=== PATIENT | female | born 1945 | race Caucasian/White ===

== ENCOUNTER 2019-04-25 11:27 | Outpatient (REF) | payer MEDICARE, BC, SELFPAY ==
[2019-04-25 13:57] LABS: Anion Gap 8.4 mmol/L (3-11); BUN 16 mg/dL (7-18); CO2 30.6 mmol/L (21.0-32.0); CREATININE 1.23 mg/dL (0.55-1.02); Calcium 9.1 mg/dL (8.5-10.1); Chloride 100 mmol/L (98-107); Estimated GFR 42.92 (mL/min/1.73m2); Glucose 88 mg/dL (70-100); Potassium 3.9 mmol/L (3.5-5.1); Sodium 139 mmol/L (136-145); TSH 8.07 uIU/mL (0.358-3.74)
== END 2019-04-25 11:47 ==
LOC: NCHCN 11:27
PROVIDERS: PCP Internal Medicine; Visit Provider Internal Medicine
DX: E03.9 Hypothyroidism, unspecified (principal); I10 Essential (primary) hypertension; E87.6 Hypokalemia
CPT/HCPCS: 80048; 84443

== ENCOUNTER 2019-06-28 10:21 | Outpatient (REF) | payer MEDICARE, BC, SELFPAY ==
[2019-06-28 12:06] LABS: TSH 1.01 uIU/mL (0.36-3.74)
== END 2019-06-28 10:41 ==
LOC: NCHCN 10:21
PROVIDERS: PCP Internal Medicine; Visit Provider Internal Medicine
DX: E03.9 Hypothyroidism, unspecified (principal)
CPT/HCPCS: 84443

== ENCOUNTER 2020-08-27 12:56 | Outpatient (REF) | payer MEDICARE, BC, SELFPAY ==
[2020-08-27 21:59] LABS: Anion Gap 10.5 mmol/L (3-11); BUN 16 mg/dL (7-18); CO2 29.5 mmol/L (21.0-32.0); CREATININE 1.03 mg/dL (0.55-1.02); Calcium 9.4 mg/dL (8.5-10.1); Chloride 99 mmol/L (98-107); Estimated GFR 52.53 (mL/min/1.73m2); FREE T4 1.33 ng/dL (0.76-1.46); Glucose 82 mg/dL (74-106); Potassium 3.5 mmol/L (3.5-5.1); Sodium 139 mmol/L (136-145); TSH 1.25 uIU/mL (0.36-3.74)
[2020-08-27 22:16] LABS: Calculated LDL 138 mg/dL (<100); Cholesterol 228 mg/dL (<200); HDL Cholesterol 68 mg/dL (40-60); Triglyceride 110 mg/dL (<150)
== END 2020-08-27 13:16 ==
LOC: NCHCN 12:56
PROVIDERS: PCP Internal Medicine; Visit Provider Internal Medicine
DX: E03.9 Hypothyroidism, unspecified (principal); E78.5 Hyperlipidemia, unspecified; I10 Essential (primary) hypertension
CPT/HCPCS: 80048; 80061; 84439; 84443

== ENCOUNTER 2021-08-30 15:10 | Outpatient (REF) | payer MEDICARE, BC, SELFPAY ==
[2021-08-30 20:53] LABS: HGB 13.9 g/dL (11.2-15.7); MCH 28.3 pg (27.0-33.0); MCHC 31.6 % (32.0-36.0); MCV 89.4 fL (80-95); MPV 9.8 fL (8.0-11.0); Platelet Count 259 10^3/uL (130-400); RBC 4.92 10^6/uL (3.93-5.22); RDW 13.5 % (11.7-14.6); RDW-SD 44.4 fL; WBC 11.31 10^3/uL (4.4-10.8)
[2021-08-30 21:11] LABS: ALT 21 U/L (14-59); AST 15 U/L (15-37); Albumin 4.1 g/dL (3.4-5.0); Alkaline Phosphatase 92 U/L (46-116); Anion Gap 7.1 mmol/L (3-11); BUN 21 mg/dL (7-18); Bilirubin, Total 0.9 mg/dL (0.2-1.0); CO2 32.9 mmol/L (21.0-32.0); Calcium 9.3 mg/dL (8.5-10.1); Chloride 101 mmol/L (98-107); Glucose 88 mg/dL (74-106); Potassium 3.5 mmol/L (3.5-5.1); Sodium 141 mmol/L (136-145); TSH 0.89 uIU/mL (0.36-3.74); Total Protein 7.6 g/dL (6.4-8.2)
== END 2021-08-30 15:11 | disposition home or self-care (01) ==
LOC: NCHCN 15:10
PROVIDERS: PCP Internal Medicine; Visit Provider Family Medicine
DX: I10 Essential (primary) hypertension (principal); E03.9 Hypothyroidism, unspecified; M79.605 Pain in left leg
CPT/HCPCS: 80053; 85027; 84443

== ENCOUNTER 2021-09-02 00:48 | Outpatient (CLI) | payer MEDICARE, BC, SELFPAY ==
--- NOTE | 2021-09-02 13:20 | DI.RAD_ITS ---
Exam(s) XR KNEE LT 3V AP,LAT,STEVIE EXAM: XR KNEE LT 3V AP,LAT,STEVIE CLINICAL HISTORY: LT KNEE AND LEG PAIN,M79.605 TECHNIQUE: COMPARISON: CR RIGHT KNEE 3 VIEWS from 09/30/2012 FINDINGS: Three views were obtained and show total knee joint replacement in position. The components appear w ell seated. No other significant bony abnormality seen. IMPRESSION: RADIATION DOSE DELIVERED: Total DLP
--- NOTE | 2021-09-02 13:20 | DI.RAD_ITS ---
Exam(s) XR HIP LT COMPLETE AP PELVIS EXAM: XR HIP LT COMPLETE AP PELVIS CLINICAL HISTORY: LT LEG PAIN, M79.605 TECHNIQUE: COMPARISON: No exams were available for comparison FINDINGS: Two views of the left hip and pelvis were obtained. There are mild degenerative changes of the SI david ints bilaterally. Cartilaginous joint spaces of both hips appear slightly narrowed. There minimal h ypertrophic changes of the acetabula bilaterally. No other bony or soft tissue abnormality seen. IMPRESSION: Slight DJD both hips. No evidence of acute process. RADIATION DOSE DELIVERED: Total DLP
== END 2021-09-02 01:08 ==
PROVIDERS: PCP Internal Medicine; Visit Provider Family Medicine
DX: M79.605 Pain in left leg (principal); M16.0 Bilateral primary osteoarthritis of hip
CPT/HCPCS: 73562; 73502

== ENCOUNTER → 2021-11-28 02:46 | Outpatient (CLI) | payer MEDICARE, BC, SELFPAY ==
--- NOTE | 2021-11-28 | DI.US_ITS ---
Exam(s) US PELVIS TRANSVAGINAL EXAM: US PELVIS TRANSVAGINAL CLINICAL HISTORY: POSTMENOPAUSAL BLEEDING,N95.0. TECHNIQUE: Transabdominal and transvaginal pelvic ultrasound was performed using standard protocol. COMPARISON: No exams were available for comparison FINDINGS: KIDNEYS: The left kidney is unremarkable. The right kidney was not visualized. The reports history of right renal atrophy. No evidence of renal calculi. No evidence of hydronephrosis. No renal mass o r cyst identified. UTERUS: Position: Anteverted. Size: 9.7 long by 4.9 AP by 4.0 transverse cm Endometrium: 2.1 cm. The medial stripe is thickened and heterogeneous. No increased blood flow is se en. Myometrium: Unremarkable. Cervix: Cervical nabothian cysts are present. OVARIES: The ovaries were not visualized transabdominally or transvaginally. No adnexal mass is seen sonographically. CUL-DE-SAC: Free fluid: None. Other: None. IMPRESSION: 1. Thickened heterogeneous endometrial stripe at 2.1 cm in this postmenopausal patient. Endometrial hypertrophy, polyp or neoplasm should be considered. Endometrial biopsy should be considered in this patient. Gynecologic consult is recommended. 2. The ovaries were not visualized. No adnexal masses are seen sonographically. 3. Nonvisualization of the right kidney. The patient reports a history of right renal atrophy. DATA REPOSITORY:
== END ==
PROVIDERS: PCP Internal Medicine; Visit Provider Family Medicine
DX: N95.0 Postmenopausal bleeding (principal); R93.89 Abnormal findings on diagnostic imaging of other specified body structures
CPT/HCPCS: 76830; 76856

== ENCOUNTER 2021-12-16 03:12 | Outpatient (CLI) | payer MEDICARE, BC, SELFPAY ==
[2021-12-16 12:17] LABS: Source Nasal/Nares
[2021-12-17 09:14] LABS: COVID-19 PCR Negative (Negative)
== END 2021-12-16 03:13 | disposition home or self-care (01) ==
LOC: LBO 03:12
PROVIDERS: PCP Family Medicine; Visit Provider Obstetrics & Gynecology
DX: Z01.818 Encounter for other preprocedural examination (principal); Z20.822 Contact with and (suspected) exposure to COVID-19
CPT/HCPCS: 36415; 86850; 86900; 86901; 87635; 85025

== ENCOUNTER 2021-12-16 03:46 | Outpatient (CLI) | payer MEDICARE, BC, SELFPAY ==
[2021-12-16 11:06] LABS: Abs Immature Grans 0.07 10^3/uL (0.0-0.06); Absolute Basophil Count 0.08 10^3/uL (0.0-0.2); Absolute Eosinophil Count 0.25 10^3/uL (0.0-0.7); Absolute Lymphocyte Count 2.68 10^3/uL (1.2-3.4); Absolute Monocyte Count 1.15 10^3/uL (0.1-0.8); Absolute Neutrophil Count 7.58 10^3/uL (1.2-6.7); Basophils % 0.7; Eosinophils % 2.1; HCT 42.3 % (36.0-46.0); HGB 13.7 g/dL (11.2-15.7); Immature Grans % 0.6; Lymphocytes % 22.7; MCH 28.4 pg (27.0-33.0); MCHC 32.4 % (32.0-36.0); MCV 87.8 fL (80-95); MPV 9.3 fL (8.0-11.0); Monocytes % 9.7; Neutrophils % 64.2; Nucleated RBC 0 %; Platelet Count 274 10^3/uL (130-400); RBC 4.82 10^6/uL (3.93-5.22); RDW 13.3 % (11.7-14.6); RDW-SD 43.1 fL; WBC 11.81 10^3/uL (4.4-10.8)
== END 2021-12-16 03:47 | disposition home or self-care (01) ==
LOC: LBO 03:47
PROVIDERS: PCP Family Medicine; Visit Provider Obstetrics & Gynecology
DX: N95.0 Postmenopausal bleeding (principal); Z01.818 Encounter for other preprocedural examination; Z01.812 Encounter for preprocedural laboratory examination
CPT/HCPCS: 36415; 86850; 86900; 86901; 85025

== ENCOUNTER 2021-12-18 07:19 | Day surgery (SDC) | payer MEDICARE, BC, SELFPAY ==
--- NOTE | 2021-12-17 09:29 | ENDO_PTH ---
PATIENT: Jessica Chamorro LOC: [facility] U#:[id number] AGE/SX: 76/F ROOM: RE12/18/[address]: Catalina Mak DO : 1945 BED: DIS: 12/18/2021 SPEC #: [id number] RECD: 12/18/21 12:30 STATUS: NORMA RE #: [id number] RUSTAM: 12/17/21 09:[address]: Catalina Mak DEPT: Surgical Specimen RECD BY: Yessi James ENTERED: 12/18/21 12:31 SP TYPE: Endo OTHR DR: Darci Duarte Tissues: 1 - ENDOCERVICAL BX/CURRETTE 2 - ENDOMETRIUM BX/CURRETTE 3 - ENDOMETRIUM BX/CURRETTE Procedures: GROSS AND MICRO LEVEL 4 Comments: [id number]
[2021-12-18 07:30] VITALS: BP 154/79; PULSE 79; RESP 18; TEMP 37.2; O2SAT 99
--- NOTE | 2021-12-18 08:11 | W.ANESPRE ---
General Info Date of Service Date Performed: 12/18/21 Height: 4 ft 11.8 in Weight: 110.6 kg Body Mass Index (BMI): 47.9 Surgical Procedure: Operation Date: 12/18/21 08:55 Proposed Procedures Side Surgeon p Dilation & Curettage with Hysteroscopy, MYOSURE Catalina Mak DO Meds Allergies and Home Medications Allergies Allergy/AdvReac Type Severity Reaction Status Date / Time clindamycin Allergy Intermediate Skin Rash Unverified 12/18/21 07:43 Penicillins Allergy Intermediate Skin Rash Unverified 12/18/21 07:43 Sulfa (Sulfonamide Allergy Intermediate Skin Rash Unverified 12/18/21 07:43 Antibiotics) triamterene Allergy Intermediate Skin Rash Unverified 12/18/21 07:43 povidone-iodine AdvReac Mild rash Verified 12/18/21 07:43 Home Medication Medication Instructions Recorded amlodipine [Norvasc] 10 mg PO DAILY tab-cap NS 03/13/15 aspirin [Aspirin Low-Strength] 81 mg PO DAILY tab-cap NS 03/13/15 cholecalciferol (vitamin D3) 400 unit PO DAILY NS 03/13/15 [Vitamin D3] potassium chloride 20 meq PO DAILY tab-cap NS 03/13/15 hydrochlorothiazide 25 mg tablet 25 mg PO DAILY 12/02/21 levothyroxine 125 mcg capsule 125 mcg PO DAILY 12/02/21 metoprolol succinate 25 mg PO DAILY 12/16/21 Current Visit Medications: Current Medications Generic Name Dose Route Start Last Admin Trade Name Freq PRN Reason Stop Dose Admin Ringer's Solution 1,000 mls @ 125 mls/hr 12/18/21 06:00 IV 12/23/21 23:59 INFUSION JOYCE IV Miscellaneous Supplies 1 each 12/18/21 06:00 Iv Access IV 12/23/21 23:59 DIRECTED JOYCE Sodium Chloride 0 ml 12/18/21 06:00 Normal Saline Flush 10 Ml Syr IV 12/23/21 23:59 PRN PRN Sodium Chloride 0 ml 12/18/21 06:00 Normal Saline 10 Ml Vial IJ 12/23/21 23:59 DIRECTED PRN Sterile Water 0 ml 12/18/21 06:00 Water,Injection,Sterile 10 Ml Vial IJ 12/23/21 23:59 DIRECTED PRN PFSH Active Problems Active Problems: Problem Status Onset Code Postmenopausal bleeding N95.0 Thickened endometrium R93.89 Medical History Medical History (Updated 12/18/21 @ 07:39 by Esther Avery RN) atypical trygeminal neuralgia Heart murmur benign Hx of thyroid cancer Hyperlipidemia Hypertension Hypothyroid one functioning kidney congenital Osteopenia Sleep apnea Surgical History Surgical History bladder sling Colonoscopy - MAC Hx of breast biopsy x2 Ligation of fallopian tube Open Carpal Tunnel release left Replacement of total knee joint bilateral thumb surgery Thyroid Tobacco Smoking/Tobacco Use Status: Never Alcohol Alcohol Intake: never Substance Use Substance use: Never Substance use type: does not use Vital Signs and Lab Results Vital Signs Most Recent Vital Signs in EMR: Most Recent Vital Signs Temp Pulse Resp BP Pulse Ox 37.2 C 79 18 154/79 H 99 12/18/21 07:30 12/18/21 07:30 12/18/21 07:30 12/18/21 07:30 12/18/21 07:30 Lab Results Blood Type / Crossmatch: Patient ABO/Rh O Positive 12/16/21 Antibody Screen NEGATIVE 12/16/21 Complete Blood Count: White Blood Count 11.81 10^3/uL (4.4-10.8) H 12/16/21 10:30 12/16/21 Red Blood Count 4.82 10^6/uL (3.93-5.22) 12/16/21 10:30 12/16/21 Hemoglobin 13.7 g/dL (11.2-15.7) 12/16/21 10:30 12/16/21 Hematocrit 42.3 % (36.0-46.0) 12/16/21 10:30 12/16/21 Platelet Count 274 10^3/uL (130-400) 12/16/21 10:30 12/16/21 Complete Metabolic Panel: No Data to Display Liver Function Panel: No Data to Display Coagulation Panel: No Data to Display Cardiac Panel: No Data to Display Arterial Blood Gas: No Data to Display Venous Blood Gas: No Data to Display Pancreas Panel: No Data to Display Thyroid Panel: No Data to Display Infectious Disease: Coronavirus (COVID-19)(PCR) Negative (Negative) 12/16/21 10:36 12/16/21 Coronavirus 2019 Source Nasal/Nares 12/16/21 10:36 12/16/21 Blood Cultures: No Data to Display Toxicology Panel: No Data to Display Anesthesia Assessment and Plan Anesthesia History Personal History: PONV Family History: No Family History of Anesthesia Complications Exercise Tolerance Exercise Tolerance: Metabolic Equivalents>4 Pertinent Negatives Pertinent Negatives: No Symptoms of GERD (Reports as long as she avoids certain foods she does okay. ) Cardiac & Pulmonary Exam Cardiac Exam: Normal S1/S2 Heart Sounds Pulmonary Exam: Clear Bilateral Breath Sounds Implantable Cardiac Device Does patient have a Pacemaker or an ICD?: No Airway Exam Known Difficult Airway: No Mallampati Class: 3 Mouth Opening: Narrow (< 3cm) Thyromental Distance: Greater than 3 cm Neck Range of Motion: Full ROM Neck Circumference: Normal Teeth Condition: Normal Dentition (Missing one tooth) Tooth Numberin. Missing ASA Classification ASA Score: ASA 3 Emergency Case?: No NPO Status NPO Status: NPO Clears >2 hours, Solids >8 hours Anesthesia Plan Resuscitation Status: Full Code Anesthesia Technique: General Anesthesia Airway Planned: Natural Airway Monitors Used: Standard Monitors Preoperative Comments:: Challenging IV
[2021-12-18 08:40] VITALS: BMI 47.9
[2021-12-18] MEDS: Lactated Ringers 1,000 ML 125 ML IV (08:49)
[2021-12-18 09:50] VITALS: BP 136/105; PULSE 72; RESP 16; TEMP 36.5; O2SAT 94
--- NOTE | 2021-12-18 09:51 | W.PM.OP ---
Date of service: 12/18/21 Time of Service: 09:51 Operative Note Operative Note DATE OF PROCEDURE: 12/18/21 PRE-OP DIAGNOSIS: Postmenopausal bleeding, second endometrium POST-OP DIAGNOSIS: same (Endometrial polyp) PROCEDURE: Hysteroscopy with dilation and curettage, removal of endometrial polyp SURGEON: Catalina Mak ANESTHESIA TYPE: General:No Airway Refer to Anesthesia Record ESTIMATED BLOOD LOSS: 10 PATHOLOGY: other (1. Endocervical curetting 2. Endometrial polyp 3. Endometrial curetting) COMPLICATIONS: None Patient was transported to: same day Patient's condition: stable Indications: Postmenopausal bleeding with thickened endometrium Findings: Smooth regular endometrial lining with endometrial polyp Procedure Description: Patient was taken the operating suite with an IV running where she was placed in the supine position and anesthesia administered. She was prepped and draped in the usual sterile fashion after being placed in modified dorsolithotomy position in yellowfin stirrups. Pneumatic compression stockings were placed for thromboembolism prevention. Exam under anesthesia revealed a uterus that was midline and mobile. Speculum was inserted and a single-tooth tenaculum used to grasp the anterior lip of the cervix. Cervical os dilated to the point that a 5 mm hysteroscope could be passed without difficulty. With the MyoSure and a fluid collection system the entire endometrial cavity was inspected after instillation of normal saline. The endometrial surface itself was smooth and regular, however there was a moderately sized endometrial polyp. At this point, the MyoSure device was removed and gentle endocervical curettage performed. A stone polyp forcep was inserted through the cervical os and the endometrial polyp grasped, and removed. At this point a gentle sharp endometrial curettage was performed for scant tissue. Single-tooth tenaculum was removed speculum was removed. Patient was returned to the dorsal supine position in stable condition. She woke from anesthesia without difficulty. She was taken to the same-day surgical area in stable condition. Complications: None apparent EBL: 10 mL Pathology: 1. Endocervical curettage 2. Endometrial polyp 3. Endometrial curettage Fluid: Crystalloid per anesthesia.
[2021-12-18 10:20] VITALS: BP 130/96; PULSE 52; RESP 16; TEMP 36.1; O2SAT 96
[2021-12-18] MEDS: fentaNYL 100 MCG/2 ML VIAL IVP (10:50)
[2021-12-18 11:15] VITALS: BP 132/64; PULSE 54; RESP 16; TEMP 37; O2SAT 97
--- NOTE | 2021-12-18 11:19 | W.ANESPOSTOP ---
Postoperative Evaluation Date, Time and Location Date Performed: 12/18/21 Time Performed: 11:19 Patient Location: Day Surgery Unit Vital Signs Most Recent Imported Vital Signs: Most Recent Vital Signs Temp Pulse Resp BP Pulse Ox 36.1 C L 52 L 16 130/96 H 96 12/18/21 10:20 12/18/21 10:20 12/18/21 10:20 12/18/21 10:20 12/18/21 10:20 Pain Score Most Recent Pain Score: Most Recent Pain Score Pain Level [Mid] 1 12/18/21 11:03 Pain Level 6 12/18/21 10:20 Assessment Mental Status: Awake (Alert & Oriented to Patient Baseline) Airway and Respiratory Function: Patent airway with normal (patient baseline) respiratory exam Cardiovascular Function: Hemodynamically Stable Hydration Status: Adequately Hydrated Nausea & Vomiting: No Nausea or Vomiting Pain: Pt. Denies Any Pain Peripheral Nerve Block: Patient did not receive a nerve block
== END 2021-12-18 11:40 | disposition home or self-care (01) ==
PROVIDERS: PCP Family Medicine; Visit Provider Obstetrics & Gynecology
PROC: 0UDB8ZZ Extraction of Endometrium, Via Natural or Artificial Opening Endoscopic (ICD-10-PCS; CPT 58558; principal; 2021-12-18 08:45)
DX: N95.0 Postmenopausal bleeding (principal); N84.0 Polyp of corpus uteri; R93.89 Abnormal findings on diagnostic imaging of other specified body structures; E03.9 Hypothyroidism, unspecified; E78.5 Hyperlipidemia, unspecified
CPT/HCPCS: 58558; 88305; J1885; J2001; J2405; J3010

== ENCOUNTER 2022-03-03 11:59 | Outpatient (REF) | payer MEDICARE, BC, SELFPAY ==
[2022-03-03 19:25] LABS: Anion Gap 9.2 mmol/L (3-11); BUN 19 mg/dL (7-18); CO2 29.8 mmol/L (21.0-32.0); Calcium 9.2 mg/dL (8.5-10.1); Chloride 100 mmol/L (98-107); Estimated GFR 54.05 (mL/min/1.73m2); Glucose 89 mg/dL (74-106); Potassium 3.4 mmol/L (3.5-5.1); Sodium 139 mmol/L (136-145)
== END 2022-03-03 12:00 | disposition home or self-care (01) ==
LOC: NCHCN 11:59
PROVIDERS: PCP Family Medicine; Visit Provider Family Medicine
DX: I10 Essential (primary) hypertension (principal)
CPT/HCPCS: 80048

== ENCOUNTER 2023-03-04 13:03 | Outpatient (REF) | payer MEDICARE, BC, SELFPAY ==
[2023-03-04 13:50] LABS: HCT 44.5 % (36.0-46.0); HGB 14.7 g/dL (11.2-15.7); MCH 28.1 pg (27.0-33.0); MCV 85 fL (80-95); MPV 9.7 fL (8.0-11.0); Platelet Count 274 10^3/uL (130-400); RBC 5.24 10^6/uL (3.93-5.22); RDW 13.4 % (11.7-14.6); RDW-SD 41.6 fL; WBC 10.06 10^3/uL (4.4-10.8)
[2023-03-04 14:33] LABS: ALT 23 U/L (14-59); AST 14 U/L (15-37); Alkaline Phosphatase 74 U/L (46-116); Anion Gap 8.1 mmol/L (3-11); BUN 21 mg/dL (7-18); Bilirubin, Total 1.2 mg/dL (0.2-1.0); CO2 31.9 mmol/L (21.0-32.0); CREATININE 1.1 mg/dL (0.55-1.02); Calcium 9.7 mg/dL (8.5-10.1); Calculated LDL 150 mg/dL (<100); Chloride 102 mmol/L (98-107); Cholesterol 233 mg/dL (<200); Estimated GFR 52.08 (mL/min/1.73m2); Glucose 103 mg/dL (74-106); HDL Cholesterol 67 mg/dL (40-60); Potassium 4.2 mmol/L (3.5-5.1); Sodium 142 mmol/L (136-145); TSH 0.15 uIU/mL (0.36-3.74); Total Protein 7.6 g/dL (6.4-8.2); Triglyceride 84 mg/dL (<150)
== END 2023-03-04 13:04 | disposition home or self-care (01) ==
LOC: NCHCN 13:03
PROVIDERS: PCP Family Medicine; Visit Provider Family Medicine
DX: I10 Essential (primary) hypertension (principal); N18.30 Chronic kidney disease, stage 3 unspecified; E03.9 Hypothyroidism, unspecified; E78.5 Hyperlipidemia, unspecified
CPT/HCPCS: 80053; 80061; 85027; 84443

== ENCOUNTER → 2023-10-07 01:40 | Outpatient (CLI) | payer MEDICARE, BC, SELFPAY ==
--- NOTE | 2023-10-07 07:45 | DI.US_ITS ---
Exam(s) US PELVIS TRANSVAGINAL EXAM: US PELVIS TRANSVAGINAL CLINICAL HISTORY: check stripe,postmenopausal bleeding,n95.0 TECHNIQUE: Transabdominal and transvaginal imaging was performed using standard protocol. COMPARISON: US US PELVIS TRANSVAGINAL from 11/28/2021 FINDINGS: UTERUS: Anteverted. 8.9 x 3.9 x 5.2 cm Endometrium: 20 mm. Heterogeneous. Myometrium: Unremarkable. Cervix: Unremarkable. OVARIES: Not visualized. CUL-DE-SAC: Free fluid: None. IMPRESSION: Abnormally thickened heterogeneous endometrium. Biopsy should be considered. The ovaries were not able to be visualized. DATA REPOSITORY:
== END ==
PROVIDERS: PCP Family Medicine; Visit Provider Obstetrics & Gynecology
DX: N95.0 Postmenopausal bleeding (principal)
CPT/HCPCS: 76830; 76856

== ENCOUNTER 2023-10-26 03:59 | Outpatient (CLI) | payer MEDICARE, BC, SELFPAY ==
[2023-10-26 15:30] LABS: Abs Immature Grans 0.06 10^3/uL (0.0-0.06); Absolute Basophil Count 0.09 10^3/uL (0.0-0.2); Absolute Lymphocyte Count 3.45 10^3/uL (1.2-3.4); Absolute Neutrophil Count 7.56 10^3/uL (1.2-6.7); Basophils % 0.7; Eosinophils % 2.4; HCT 44.5 % (36.0-46.0); HGB 14.8 g/dL (11.2-15.7); Immature Grans % 0.5; Lymphocytes % 27.7; MCH 28.8 pg (27.0-33.0); MCHC 33.3 % (32.0-36.0); MCV 87 fL (80-95); MPV 9.1 fL (8.0-11.0); Neutrophils % 60.7; Platelet Count 265 10^3/uL (130-400); RBC 5.14 10^6/uL (3.93-5.22); RDW 13.3 % (11.7-14.6); RDW-SD 42.8 fL; WBC 12.46 10^3/uL (4.4-10.8)
== END 2023-10-26 04:00 | disposition home or self-care (01) ==
LOC: LBO 03:59
PROVIDERS: PCP Family Medicine; Visit Provider Obstetrics & Gynecology
DX: Z01.818 Encounter for other preprocedural examination (principal)
CPT/HCPCS: 36415; 86850; 86900; 86901; 85025

== ENCOUNTER 2023-10-28 07:01 | Day surgery (SDC) | payer MEDICARE, BC, SELFPAY ==
[2023-10-28] VITALS (11 sets, daily range): BP systolic 77–162; BP diastolic 32–131; PULSE 45–87; RESP 16–24; TEMP 36.2–36.7; O2SAT 94–100; BMI 47.9
[2023-10-28] MEDS: Lactated Ringers 1,000 ML 125 ML IV (07:46)
--- NOTE | 2023-10-28 08:30 | W.ANESPRE ---
General Info Date of Service Date Performed: 10/28/23 Height: 4 ft 11 in Weight: 107.6 kg Body Mass Index (BMI): 47.9 Surgical Procedure: Operation Date: 10/28/23 08:40 Proposed Procedure Side Surgeon p Dilation & Curettage with Hysteroscopy w/Myosure Catalina Mak DO Meds Allergies and Home Medications Allergies Allergy/AdvReac Type Severity Reaction Status Date / Time clindamycin Allergy Intermediate Skin Rash Unverified 10/28/23 07:42 Penicillins Allergy Intermediate Skin Rash Unverified 10/28/23 07:42 Sulfa (Sulfonamide Allergy Intermediate Skin Rash Unverified 10/28/23 07:42 Antibiotics) triamterene Allergy Intermediate Skin Rash Unverified 10/28/23 07:42 povidone-iodine AdvReac Mild rash Verified 10/28/23 07:42 Home Medication Medication Instructions Recorded Norvasc 10 mg tablet (amlodipine) 10 mg PO DAILY 03/13/15 Vitamin D3 10 mcg (400 unit) 400 unit PO DAILY 03/13/15 tablet (cholecalciferol (vitamin D3)) potassium chloride 20 mEq 20 meq PO DAILY 03/13/15 tablet,extended release(part/cryst) hydrochlorothiazide 25 mg tablet 25 mg PO DAILY 12/02/21 levothyroxine 125 mcg capsule 125 mcg PO DAILY 12/02/21 metoprolol succinate 25 mg 25 mg PO DAILY 12/16/21 tablet,extended release 24 hr Current Visit Medications: Current Medications Generic Name Dose Route Start Last Admin Trade Name Freq PRN Reason Stop Dose Admin Ringer's Solution 1,000 mls @ 125 mls/hr 10/28/23 06:00 10/28/23 07:46 IV 11/26/23 23:59 125 mls/hr INFUSION JOYCE Administration IV Miscellaneous Supplies 1 each 10/28/23 06:00 Iv Access IV 11/26/23 23:59 DIRECTED JOYCE Sodium Chloride 0 ml 10/28/23 06:00 Normal Saline Flush 10 Ml Syr IV 11/26/23 23:59 PRN PRN Sodium Chloride 0 ml 10/28/23 06:00 Normal Saline 10 Ml Vial IJ 11/26/23 23:59 DIRECTED PRN Sterile Water 0 ml 10/28/23 06:00 Water,Injection,Sterile 10 Ml Vial IJ 11/26/23 23:59 DIRECTED PRN PFSH Active Problems Active Problems: Problem Status Onset Code Postoperative state Z98.890 Thickened endometrium R93.89 Postmenopausal bleeding N95.0 Medical History Medical History Hypertension 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 states she does NOT want gingerale and crackers post op, makes her vomit Surgical History Surgical History Hx of breast biopsy x2 thumb surgery bladder sling Ligation of fallopian tube Replacement of total knee joint bilateral Thyroid Open Carpal Tunnel release left Colonoscopy - MAC Tobacco Smoking/Tobacco Use Status: Never Alcohol Alcohol Intake: never Substance Use Substance use: Never Substance use type: does not use Vital Signs and Lab Results Vital Signs Most Recent Vital Signs in EMR: Most Recent Vital Signs Temp Pulse Resp BP Pulse Ox 36.6 C 87 20 162/73 H 97 10/28/23 07:36 10/28/23 07:36 10/28/23 07:36 10/28/23 07:36 10/28/23 07:36 Lab Results Blood Type / Crossmatch: Patient ABO/Rh O Positive 10/26/23 Antibody Screen NEGATIVE 10/26/23 Complete Blood Count: White Blood Count 12.46 10^3/uL (4.4-10.8) H 10/26/23 15:21 Red Blood Count 5.14 10^6/uL (3.93-5.22) 10/26/23 15:21 Hemoglobin 14.8 g/dL (11.2-15.7) 10/26/23 15:21 Hematocrit 44.5 % (36.0-46.0) 10/26/23 15:21 Platelet Count 265 10^3/uL (130-400) 10/26/23 15:21 Complete Metabolic Panel: No Data to Display Liver Function Panel: No Data to Display Coagulation Panel: No Data to Display Cardiac Panel: No Data to Display Arterial Blood Gas: No Data to Display Venous Blood Gas: No Data to Display Pancreas Panel: No Data to Display Thyroid Panel: No Data to Display Infectious Disease: No Data to Display Blood Cultures: No Data to Display Toxicology Panel: No Data to Display Anesthesia Assessment and Plan Anesthesia History Personal History: No History of Anesthesia Complications Family History: No Family History of Anesthesia Complications Exercise Tolerance Exercise Tolerance: Metabolic Equivalents>4 Cardiac & Pulmonary Exam Cardiac Exam: Normal S1/S2 Heart Sounds Pulmonary Exam: Clear Bilateral Breath Sounds Implantable Cardiac Device Does patient have a Pacemaker or an ICD?: No Airway Exam Known Difficult Airway: No Mallampati Class: 3 Mouth Opening: Narrow (< 3cm) Thyromental Distance: Greater than 3 cm Neck Range of Motion: Full ROM Neck Circumference: Normal Teeth Condition: Normal Dentition (Missing one tooth) ASA Classification ASA Score: ASA 3 Emergency Case?: No NPO Status NPO Status: NPO Clears >2 hours, Solids >8 hours Anesthesia Plan Resuscitation Status: Full Code Anesthesia Technique: General Anesthesia Airway Planned: LMA Monitors Used: Standard Monitors
--- NOTE | 2023-10-28 10:42 | ENDO_PTH ---
PATIENT: Jessica Chamorro LOC: [facility] U#:[id number] AGE/SX: 77/F ROOM: RE10/28/[address]: Catalina Mak DO : 1945 BED: DIS: 10/28/2023 SPEC #: [id number] RECD: 10/28/23 12:47 STATUS: NORMA RE #: [id number] RUSTAM: 10/28/23 10:[address]: Catalina Mak DEPT: Surgical Specimen RECD BY: Yessi James ENTERED: 10/28/23 12:47 SP TYPE: Endo OTHR DR: Darci Duarte Tissues: 1 - ENDOCERVICAL BX/CURRETTE 2 - ENDOMETRIUM BX/CURRETTE Procedures: GROSS AND MICRO LEVEL 4 Comments: [id number]
--- NOTE | 2023-10-28 11:02 | ROE_ITS ---
Date of service: 10/28/23 Time of Service: 11:02 Operative Note Operative Note DATE OF PROCEDURE: 10/28/23 PRE-OP DIAGNOSIS: Postmenopausal bleeding, thickened endometrium POST-OP DIAGNOSIS: same PROCEDURE: Hysteroscopy with dilation and curettage SURGEON: Catalina Mak ANESTHESIA TYPE: General LMA/ETT Refer to Anesthesia Record ESTIMATED BLOOD LOSS: 20 PATHOLOGY: other (1. Endocervical curettage 2. Endometrial curettage) COMPLICATIONS: None Patient was transported to: PACU Patient's condition: stable Indications: Recurrent postmenopausal bleeding and thickened endometrium Findings: [place] endometrium with irregularity, no discrete polyp. Procedure Description: After full informed consent was obtained, patient was taken the operating suite with an IV running. She was placed in dorsal supine position and anesthesia administered via LMA. She was then placed in the modified dorsolithotomy position in yellowfin stirrups and prepped and draped in the usual sterile fashion. Exam under anesthesia was significantly limited due to body habitus. At this point a speculum was inserted into the vaginal vault in order to identify the cervix, however during the process patient lost her LMA airway. At this point, she was converted to endotracheal intubation for better control of her airway and analgesia. At this point, once analgesia was confirmed, speculum was reinserted and a single-tooth tenaculum used to grasp the posterior lip of the cervical os. The uterus sounded to 8 cm and the cervical os dilated systematically to the point that a 5 mm hysteroscope could be passed without difficulty. At this point, hysteroscope was inserted into the uterine cavity and with normal saline instillation dilation of the cavity undertaken. The pleural cavity was noted to be plush, thick, shaggy, and somewhat irregular. There was no discrete polyp noted. At this point, the hysteroscope portion was terminated and a fractional dilation and curettage performed with initial curetting of the endocervix, followed by curetting of the endometrium. There was a less significant amount of tissue than I would have anticipated given the visual nature of her endometrial cavity. At this point, tenaculum was removed and puncture sites were noted to be hemostatic. Speculum was removed, and the patient was returned to the dorsal supine position and awoke from anesthesia with relative ease. EBL: 20 cc Fluids: Crystalloid per anesthesia Deficit from hysteroscope:90 mL Pathology: 1. Endocervical curetting 2. Endometrial curetting
[2023-10-28] MEDS: fentaNYL 100 MCG/2 ML VIAL IVP ×2 (11:21→11:30)
[2023-10-28] MEDS: ePHEDrine 25 MG/5 ML Syringe IVP (11:42)
[2023-10-28] MEDS: oxyCODONE 5 mg/Acetaminophen 325 mg TAB 1 TAB PO (12:55)
== END 2023-10-28 13:35 | disposition home or self-care (01) ==
PROVIDERS: PCP Family Medicine; Visit Provider Obstetrics & Gynecology
PROC: 0UDB8ZZ Extraction of Endometrium, Via Natural or Artificial Opening Endoscopic (ICD-10-PCS; CPT 58558; principal; 2023-10-28 08:30)
DX: N95.0 Postmenopausal bleeding (principal); E03.9 Hypothyroidism, unspecified; I10 Essential (primary) hypertension; N85.8 Other specified noninflammatory disorders of uterus
CPT/HCPCS: 58558; 88305; J1100; J1885; J2001; J2405; J2704; J3010

== ENCOUNTER 2024-02-23 13:53 | Outpatient (REF) | payer MEDICARE, BC, SELFPAY ==
[2024-02-23 14:49] LABS: Abs Immature Grans 0.04 10^3/uL (0.0-0.06); Absolute Basophil Count 0.08 10^3/uL (0.0-0.2); Absolute Eosinophil Count 0.25 10^3/uL (0.0-0.7); Absolute Lymphocyte Count 2.46 10^3/uL (1.2-3.4); Absolute Monocyte Count 1.01 10^3/uL (0.1-0.8); Absolute Neutrophil Count 6.75 10^3/uL (1.2-6.7); Basophils % 0.8; Eosinophils % 2.4; HCT 45.1 % (36.0-46.0); HGB 14.9 g/dL (11.2-15.7); Immature Grans % 0.4; Lymphocytes % 23.2; MCH 29.1 pg (27.0-33.0); MCV 88 fL (80-95); MPV 9.8 fL (8.0-11.0); Monocytes % 9.5; Neutrophils % 63.7; Platelet Count 276 10^3/uL (130-400); RBC 5.12 10^6/uL (3.93-5.22); RDW-SD 44.6 fL; WBC 10.59 10^3/uL (4.4-10.8)
[2024-02-23 15:05] LABS: ALT 20 U/L (14-59); AST 12 U/L (15-37); Albumin 3.9 g/dL (3.4-5.0); Alkaline Phosphatase 83 U/L (46-116); Anion Gap 10.7 mmol/L (3-11); BUN 19 mg/dL (7-18); Bilirubin, Total 0.9 mg/dL (0.2-1.0); CO2 29.3 mmol/L (21.0-32.0); Calcium 9.2 mg/dL (8.5-10.1); Chloride 101 mmol/L (98-107); Estimated GFR 58.02 (mL/min/1.73m2); Glucose 89 mg/dL (74-106); Sodium 141 mmol/L (136-145); Total Protein 7.2 g/dL (6.4-8.2)
== END 2024-02-23 13:54 | disposition home or self-care (01) ==
LOC: NCHCN 13:53
PROVIDERS: PCP Family Medicine; Referring Provider Family Medicine; Visit Provider Family Medicine
DX: N95.0 Postmenopausal bleeding (principal)
CPT/HCPCS: 80053; 85025

== ENCOUNTER 2025-04-10 15:00 | Outpatient (REF) | payer MEDICARE, BC, SELFPAY ==
[2025-04-10 22:34] LABS: ALT 14 U/L (14-59); AST 17 U/L (15-37); Albumin 4.1 g/dL (3.4-5.0); Alkaline Phosphatase 80 U/L (46-116); Anion Gap 8.1 mmol/L (3-11); BUN 12 mg/dL (7-18); Bilirubin, Total 1.1 mg/dL (0.2-1.0); CO2 29.9 mmol/L (21.0-32.0); CREATININE 0.9 mg/dL (0.55-1.02); Calcium 9.4 mg/dL (8.5-10.1); Chloride 98 mmol/L (98-107); Estimated GFR 65.44 (mL/min/1.73m2); Glucose 96 mg/dL (74-106); Potassium 3.4 mmol/L (3.5-5.1); Sodium 136 mmol/L (136-145); TSH 1.68 uIU/mL (0.36-3.74); Total Protein 7.3 g/dL (6.4-8.2)
== END 2025-04-10 15:01 | disposition home or self-care (01) ==
LOC: NCHCN 15:00
PROVIDERS: PCP Family Medicine; Visit Provider Family Medicine
DX: E03.9 Hypothyroidism, unspecified (principal); I10 Essential (primary) hypertension
CPT/HCPCS: 80053; 84443